=== PATIENT | male | born 1940 | race Caucasian/White ===

== ENCOUNTER 2017-04-19 14:28 | Inpatient (IN) ==
[2017-04-19] MEDS ORDERED: NITROGLYCERIN 1 GM OINT.TOP TD ONE (14:44)
[2017-04-19] MEDS ORDERED: IPRATROPIUM/ALBUTEROL 3 ML AMPUL.NEB NEB ONE ×2 (14:46→14:48)
--- NOTE | 2017-04-19 14:49 | Emergency Department Note ---
SOB HPI - General Chief Complaint: Shortness of Breath/Dyspnea Stated Complaint: SOB Time Seen by Provider: 04/19/17 14:46 Source: patient Mode of arrival: wheelchair Limitations: no limitations - History of Present Illness shortness of breath for the last several days, gradually worsening. Denies fevers denies chills, he does have a cough, productive of clear phlegm. History of CHF and he also is on Lasix 80 mg a day. Denies any recent weight gain, continues to smoke about 6 cigarettes a day. No recent fevers chills, denies ankle swelling denies abdominal pain, denies chest pain but has had some chest tightness. His O2 sats were 75% when he arrived MD Complaint: shortness of breath, cough Onset (ago): day(s) Context: smoke/fume exposure Severity: moderate Consistency/Duration: constant Improves with: oxygen Worsens with: lying flat Known history of: COPD, congestive heart failure Associated symptoms: Reports: denies other symptoms, wheezing. Denies: sputum production, abdominal pain Treatment prior to arrival: none - Related Data Home oxygen amount: 3 liters Home Medications Medication Instructions Recorded Confirmed levalbuterol 1.25 mg/3 mL solution 1.25 mg INHALATION Q1-4H PRN 05/23/15 for nebulization furosemide 40 mg tablet 40 mg PO .2xw tab 01/20/17 04/07/17 Previous Rx's Medication Instructions Recorded leuprolide 22.5 mg (3 month) 22.5 mg IM ONCE #7 ml 05/29/15 intramuscular syringe kit apixaban 5 mg tablet 5 mg PO BID 90 Days #180 tab 08/05/16 atorvastatin 10 mg tablet 10 mg PO QDAY #90 tab 08/06/16 levalbuterol HFA 45 mcg/actuation 2 puff INHALATION Q6H PRN #45 g 08/07/16 aerosol inhaler Oxygen 2 L #1 ea 11/28/16 bisoprolol fumarate 10 mg tablet 5 mg PO QDAY #10 tab 01/14/17 furosemide 40 mg tablet 80 mg PO QDAY #90 tab 01/20/17 fluticasone 100 mcg-umeclid 62.5 1 inh INHALATION QDAY #60 each 01/24/17 mcg-vilant 25 mcg powd for inhalation digoxin 125 mcg tablet 125 mcg PO QDAY #5 tab 02/17/17 diltiazem CD 120 mg 120 mg PO QDAY #5 cap 02/17/17 capsule,extended release 24 hr losartan 25 mg tablet 25 mg PO QDAY #10 tab 03/28/17 Allergies Allergy/AdvReac Type Severity Reaction Status Date / Time Penicillins Allergy Unknown Short of Verified 04/07/17 10:30 breath, mouth swelling Review of Systems All systems ED: reviewed and negative except as stated. Constitutional: Denies: fever, chills ENT ED: Denies: ear pain, throat pain Cardiovascular: Reports: palpitations, dyspnea on exertion, orthopnea. Denies: chest pain, syncope Respiratory: Reports: shortness of breath, cough, wheezes Gastrointestinal: Denies: abdominal pain, nausea, vomiting Genitourinary: Reports: frequency. Denies: dysuria Musculoskeletal: Denies: back pain Integumentary: Denies: rash Endocrine: Reports: fatigue Past Medical History - Past Medical History Source: nursing notes reviewed Medical history: Reports: atrial fibrillation, CHF, COPD, coronary artery disease, hypertension, other Surgical history ED: Reports: angioplasty/stent, vascular surgery, other Family history: Reports: hypertension - Social History smoking status: Current every day smoker Alcohol use: Reports: Occasionally Drug use: Reports: none Physical Exam Limitations: no limitations General appearance: alert, in distress Head: atraumatic, normocephalic Eye: Present: normal appearance, PERRL, EOMI ENT: normal exam, normal oropharynx, mucous membranes moist Neck: Present: normal inspection, full ROM, trachea midline. Absent: tenderness Chest: Present: normal inspection, symmetric chest wall rise. Absent: tenderness Respiratory: Present: respiratory distress, wheezes, accessory muscle use, prolonged expiratory phase Cardiovascular: Present: irregular rhythm, systolic murmur. Absent: JVD Abdominal: Present: soft, normal bowel sounds, hernia, other (midline hernia which is soft). Absent: distention, tenderness, guarding, rebound Extremities: Present: normal inspection, full ROM. Absent: tenderness, pedal edema, joint swelling, calf tenderness Back: Present: normal inspection, full ROM. Absent: CVA tenderness (R), CVA tenderness (L), vertebral tenderness Neurological: Present: alert, oriented X3, CN II-XII intact Psychiatric: Present: normal affect, normal mood Skin: Present: warm, dry, intact, cyanosis Course - Reevaluation(s) Reevaluation #1: Patient was giving breathing treatments, we also start Solu-Medrol, he was started on nitroglycerin as well as enalapril for hypertension and within one hour he was breathing much easier, feeling like he could go home. On auscultation he does have significant wheezing, his heart rate is still in the 120s, atrial fibrillation and he is on [place] for that up. His troponin was negative. CBC within normal limits, blood gas showing significant CO2 retention. We tried BiPAP and he would not tolerate that. Continue with respiratory treatments and we lowered his O2, this point he needs to be admitted for #1 COPD exacerbation #2 CHF #3 atrial fibrillation with rapid ventricular response. Vital Signs Temperature 99.6 F H 04/19/17 14:29 Pulse Rate 76 04/19/17 14:29 Respiratory Rate 33 H 04/19/17 14:29 Blood Pressure 195/125 04/19/17 14:29 Pulse Oximetry (%) 85 L 04/19/17 14:29 Temperature 99.6 F H 04/19/17 14:29 Pulse Rate 38 L 04/19/17 15:25 Respiratory Rate 31 H 04/19/17 15:25 Blood Pressure 141/100 04/19/17 15:21 Pulse Oximetry (%) 96 04/19/17 15:25 Shortness of Breath/Dyspnea - [facility] Narrative Medical decision making narrative: hhospital admission discussed with Dr. Barba. Does have CHF and COPD exacerbation. - Lab Data Result diagrams: 04/19/17 14:58 04/19/17 14:58 Lab Results 04/19/17 04/19/17 04/19/17 Range/Units 14:58 14:58 14:58 WBC 9.7 (4.5-11.0) K/mcL RBC 5.22 (4.50-5.90) M/mcL Hgb 16.3 (13.5-16.5) g/dL Hct 49.3 (41.0-55.0) % MCV 94.3 (80.0-100.0) fL MCH 31.2 (26.0-34.0) pg MCHC 33.1 (31.0-36.0) g/dL RDW 14.0 (11.5-14.5) % Plt Count 139 L (140-440) K/mcL MPV 9.9 (7.4-10.4) fL Gran % 82.6 H (38.0-78.0) % Lymph % (Auto) 10.8 L (15.5-49.0) % Garrett % (Auto) 6.2 (1.0-12.0) % Eos % (Auto) 0.2 (0.0-7.0) % Baso % (Auto) 0.2 (0.0-2.0) % Gran # 8.0 (1.8-8.0) K/mcL Lymph # (Auto) 1.0 L (1.5-4.8) K/mcL Garrett # (Auto) 0.6 (0.1-0.9) K/mcL Eos # (Auto) 0 (0.0-0.7) K/mcL Baso # (Auto) 0 (0.0-0.3) K/mcL VBG Lactic Acid 1.7 (0.5-2.2) mmol/L Sodium 134 (133-145) mmol/L Potassium 4.3 (3.3-5.1) mmol/L Chloride 90 L (96-108) mmol/L Carbon Dioxide 30 (22-30) mmol/L Anion Gap 14.0 (8-16) BUN 23 (8-23) mg/dl Creatinine 0.9 (0.7-1.2) mg/dl GFR Calculation 82 Glucose 135 H (70-105) mg/dL Calcium 9.5 (8.6-10.4) mg/dl Total Bilirubin 0.9 (0.0-1.0) mg/dL AST 22 (0-37) U/l ALT 14 (0-40) U/l Alkaline Phosphatase 91 (39-117) U/L Troponin T (0-0.03) ng/ml NT-Pro-B Natriuret Pep 1877.0 H (0-450) pg/ml Total Protein 8.0 (5.9-8.4) gm/dL Albumin 4.5 (3.2-5.2) gm/dL Globulin 3.5 (2.2-3.7) gm/dL Albumin/Globulin Ratio 1.3 (1.0-2.3) 04/19/17 Range/Units 14:58 WBC (4.5-11.0) K/mcL RBC (4.50-5.90) M/mcL Hgb (13.5-16.5) g/dL Hct (41.0-55.0) % MCV (80.0-100.0) fL MCH (26.0-34.0) pg MCHC (31.0-36.0) g/dL RDW (11.5-14.5) % Plt Count (140-440) K/mcL MPV (7.4-10.4) fL Gran % (38.0-78.0) % Lymph % (Auto) (15.5-49.0) % Garrett % (Auto) (1.0-12.0) % Eos % (Auto) (0.0-7.0) % Baso % (Auto) (0.0-2.0) % Gran # (1.8-8.0) K/mcL Lymph # (Auto) (1.5-4.8) K/mcL Garrett # (Auto) (0.1-0.9) K/mcL Eos # (Auto) (0.0-0.7) K/mcL Baso # (Auto) (0.0-0.3) K/mcL VBG Lactic Acid (0.5-2.2) mmol/L Sodium (133-145) mmol/L Potassium (3.3-5.1) mmol/L Chloride (96-108) mmol/L Carbon Dioxide (22-30) mmol/L Anion Gap (8-16) BUN (8-23) mg/dl Creatinine (0.7-1.2) mg/dl GFR Calculation Glucose (70-105) mg/dL Calcium (8.6-10.4) mg/dl Total Bilirubin (0.0-1.0) mg/dL AST (0-37) U/l ALT (0-40) U/l Alkaline Phosphatase (39-117) U/L Troponin T < 0.01 (0-0.03) ng/ml NT-Pro-B Natriuret Pep (0-450) pg/ml Total Protein (5.9-8.4) gm/dL Albumin (3.2-5.2) gm/dL Globulin (2.2-3.7) gm/dL Albumin/Globulin Ratio (1.0-2.3) Disposition Pt seen by MERCHANDISING SPECIALIST/PA only: No Clinical Impression: COPD exacerbation Disposition: Xfer As Inpt ([facility]) Referrals: Anup Kent MD [Primary Care Provider] -
[2017-04-19] MEDS ORDERED: methylPREDNISolone SOD SUCC 125 MG/2 ML VIAL IV ONE (14:52)
[2017-04-19] MEDS ORDERED: LACTATED RINGERS 1,000 ML IV ONE (14:52)
[2017-04-19] MEDS ORDERED: ENALAPRILAT 1.25 MG/ML VIAL IV ONE (14:55)
[2017-04-19 15:35] LABS: Basophils # (Auto) 0 K/mcL (0.0-0.3); Basophils % (Auto) 0.2 % (0.0-2.0); Eosinophils # (Auto) 0 K/mcL (0.0-0.7); Eosinophils % (Auto) 0.2 % (0.0-7.0); Granulocytes % (Auto) 82.6 % (38.0-78.0); Lymphocytes % (Auto) 10.8 % (15.5-49.0); Mean Cell Volume 94.3 fL (80.0-100.0); Mean Corpuscular HGB Conc 33.1 g/dL (31.0-36.0); Mean Corpuscular Hemoglobin 31.2 pg (26.0-34.0); Monocytes # (Auto) 0.6 K/mcL (0.1-0.9); Monocytes % (Auto) 6.2 % (1.0-12.0); Platelet Count 139 K/mcL (140-440); RBC 5.22 M/mcL (4.50-5.90)
[2017-04-19] MEDS ORDERED: DILTIAZEM 25 MG/5 ML VIAL IV ONE (15:36)
[2017-04-19 15:48] LABS: ALT/SGPT 14 U/l (0-40); Albumin 4.5 gm/dL (3.2-5.2); Albumin/Globulin Ratio 1.3 (1.0-2.3); Alkaline Phosphatase 91 U/L (39-117); Blood Urea Nitrogen 23 mg/dl (8-23)
[2017-04-19] MEDS ORDERED: NICOTINE 14 MG PATCH ONE (17:16)
[2017-04-19] MEDS: NICOTINE 14 MG PATCH TOPICAL ONE ×2 (17:23)
[2017-04-19] MEDS ORDERED: OFLOXACIN OD SCH (18:15)
--- NOTE | 2017-04-19 18:54 | History and Physical Report ---
DATE OF ADMISSION: 04/19/2017 PRIMARY CARE PHYSICIAN: Uriah Kent MD DATE OF ADMISSION: 04/19/2017. REASON FOR ADMISSION: Shortness of breath. HISTORY OF CHIEF COMPLAINT: Mr. Pate is a 77-year-old with known history of O2 dependent COPD, history of prior atrial fibrillation on anticoagulation who has been an active smoker carrying over a 60 pack history. He is actually cutting down and is down to 6 cigarettes a day. He has been following up with Dr. Judd, plant manager. Over the last couple of days the patient has had increasing cough along with shortness of breath. Symptoms associated with voluminous expectoration which is more purulent in nature. Symptoms have progressed to the point the patient is barely able to function and perform activities of daily living. By this morning, he was almost gasping for air and subsequently came to [facility] Emergency Room. Initial workup was significant for hypercapnic respiratory acidosis with COPD exacerbation. The patient received first dose of steroids along with bronchodilators and was started on BiPAP. However, the patient became extremely claustrophobic and subsequently BiPAP was discontinued. The patient also was in atrial fibrillation with RVR with rate around 130 to 140s and received IV diltiazem. Hospitalist service was consulted. At the time of evaluation, the patient is accompanied with his , Monica. The patient is in remarkable distress with shortness of breath, unable to talk in full sentences. Most of the history was obtained from patient's and partly from patient. He although was able to provide answers to review of systems. He denies chest pain, fever or productive sputum. He denies sick contacts. Denies changes in medications. He is actively smoking 6 cigarettes a day. He is unable to walk more than 20 feet at a time due to extreme fatigue, and shortness of breath. He denies weight loss but endorses to loss of appetite and has not eaten for the last 36 hours. Although feels slightly better after initial breathing treatment and steroids. Other than that, patient denied diarrhea, abdominal pain, headache, photophobia, joint pain or rash. REVIEW OF SYSTEMS: Ten-point review of system was performed and negative except the ones discussed above. PAST MEDICAL HISTORY: 1. Atrial fibrillation. 2. Anticoagulation for CVA prophylaxis, on Coumadin. 3. COPD. 4. History of congestive heart failure. 5. Hypertension. ALLERGIES: PENICILLIN. CURRENT MEDICATIONS: Losartan 25. Diltiazem 120. Digoxin 125. Furosemide 40. Bisoprolol 10. Oxygen at 2 liters. Levalbuterol inhaled every 6. Atorvastatin 10. Apixaban 5 twice daily. Leuprolide 22.5 monthly. Furosemide 40. PAST SURGICAL HISTORY: 1. History of prostate cancer surgery. 2. Aortic aneurysm repair. 3. Colonoscopy. FAMILY HISTORY: None significant. SOCIAL HISTORY: 1. He is to his , Monica, who can be reached at [phone]. 2. No alcoholism. 3. He smokes currently 6 cigarettes a day and carrying over [id number] history. PHYSICAL EXAMINATION: GENERAL: The patient is in remarkable distress. VITAL SIGNS: Blood pressure 127/58, respiration rate 35, temperature 99.6, pulse 141, sats 92 percent on 3 liters oxygen. The patient unable to tolerate BiPAP. HEENT: Pupils symmetric. Oral cavity is dry. No ear or nose discharge. Head is normocephalic and atraumatic. NECK: No lymphadenopathy. HEART: S1, S2, irregular rhythm. ESM grade 1. Diminished breath sounds at bases. CHEST: Tight chest with intercostal retraction and prolonged expiratory phase with rhonchi. ABDOMEN: Soft and nontender. LOWER EXTREMITIES: No cyanosis or clubbing. No joint swelling, mild stasis changes. SKIN: No suspicious lesion other than generalized xerosis. PSYCH: Very anxious, distressed, but cooperative and alert. NEURO: Nonfocal, moving all four extremities. LABS AND IMAGING: White count 9.7, hemoglobin 15.3, platelets 139. Lactic acid 1.7. Sodium 134, potassium 4.3, creatinine 0.9, BUN 23. BNP 1877, troponin negative. ABG 7.35/72/79. ASSESSMENT AND PLAN: A 77-year-old admitted with hypercapnic hypoxic respiratory failure. 1. Hypercapnic respiratory failure secondary to acute chronic obstructive pulmonary disease exacerbation. The patient was started on BiPAP. However, he became extremely claustrophobic. Patient refused BiPAP use however, if he continues to deteriorate noninvasive ventilation with only option as the patient is a NO CODE and would not want mechanical ventilation. Initial PAUMA II score 17. 2. Chronic obstructive pulmonary disease exacerbation. By criteria, continue bronchodilators, IV steroids, pulmonary toilet and start empiric antibiotic for upper airway pathogens including streptococcus and atypical organisms. 3. Atrial fibrillation with rapid ventricular response. Continue diltiazem/bisoprolol at home dose and use diltiazem drip if sustained rapid ventricular response. 4. Anticoagulation. Continue apixaban. 5. Other prior medical issues, including history of congestive heart failure, continued digoxin/bisoprolol/furosemide/losartan. 6. Hyperlipidemia. Continue statin. 7. CODE STATUS: DO NOT RESUSCITATE. PLAN FOR TODAY: 1. Admit as inpatient. 2. BiPAP if indicated. 3. Diltiazem drip if sustained rapid ventricular response. 4. Antibiotic coverage. 5. IV steroids, bronchodilators and pulmonary toilet. Overall, a high-complexity admit mandating inpatient hospitalization. Patient PAUMA score 17. AA:jose Job ID: [id number] Doc ID: [id number] Celmente Kent MD [facility]
[2017-04-19] MEDS ORDERED: LEVOFLOXACIN 750 MG/150 ML BAG IV SCH (19:03)
[2017-04-19] MEDS ORDERED: ONDANSETRON 4 MG/2 ML VIAL IV PRN (19:03)
[2017-04-19] MEDS ORDERED: traZODone HCL 50 MG TABLET PO PRN (19:03)
[2017-04-19] MEDS ORDERED: MAGNESIUM SULFATE 2 GM/50 ML BAG IV PRN (19:03)
[2017-04-19] MEDS ORDERED: ACETAMINOPHEN 325 MG TABLET PO PRN (19:03)
[2017-04-19] MEDS ORDERED: POTASSIUM CHLORIDE 20 MEQ PACKET PO PRN (19:03)
[2017-04-19] MEDS ORDERED: ACETAMINOPHEN 1,000 MG/100 ML BOTTLE IV PRN (19:03)
[2017-04-19] MEDS ORDERED: guaiFENesin/CODEINE 10 ML UDC PO PRN (19:03)
[2017-04-19] MEDS ORDERED: 0.9 % SODIUM CHLORIDE 1,000 ML IV SCH (19:03)
[2017-04-19] MEDS ORDERED: DILTIAZEM 125 MG in 0.9 % SODIUM CHLORIDE 100 ML IV SCH (19:03)
[2017-04-19] MEDS: prednisoLONE 1% OPHTH DROPS 1ML BOTTLE OU SCH (19:15)
[2017-04-19] MEDS ORDERED: LEVALBUTEROL 0.63 MG/3 ML AMPUL.NEB NEB PRN (19:17)
[2017-04-19] MEDS ORDERED: LEVALBUTEROL INH PRN (19:30)
[2017-04-19] MEDS: METOPROLOL TARTRATE 5 MG/5 ML VIAL IV SCH ×3 (20:14→21:20)
[2017-04-19] MEDS ORDERED: methylPREDNISolone SOD SUCC 125 MG/2 ML VIAL ONE (20:36)
[2017-04-19] MEDS: methylPREDNISolone SOD SUCC 125 MG/2 ML VIAL IV SCH (20:39)
[2017-04-19] MEDS: IPRATROPIUM/ALBUTEROL 3 ML AMPUL.NEB NEB SCH ×2 (20:57→23:42)
[2017-04-19] MEDS ORDERED: FLUTICASONE HFA 110MCG INHALER INH SCH (21:00)
[2017-04-19] MEDS ORDERED: BUDESONIDE 0.5 MG/2 ML AMPUL.NEB NEB SCH (21:00)
[2017-04-19] MEDS ORDERED: APIXABAN 5 MG TABLET PO SCH (21:00)
[2017-04-19] MEDS ORDERED: DOCUSATE SODIUM 100 MG CAPSULE PO SCH (21:00)
[2017-04-19] MEDS ORDERED: SENNOSIDES/DOCUSATE SODIUM 1 TAB TABLET PO SCH (21:00)
[2017-04-19] MEDS ORDERED: LORazepam 2 MG/ML VIAL IV PRN (21:40)
[2017-04-19 21:43] LABS: Appearance,Urine CLEAR; Bacteria,Urine 0 /hpf (0); Bilirubin,Urine NEG (NEG); Color,Urine YELLOW; Glucose,Urine (UA) NEGATIVE (NEG); Leukocyte Esterase,Urine NEG /uL (NEG); Mucus,Urine MOD /hpf (0); Protein,Urine 30 mg/dL (NEG); Specific Gravity,Urine 1.023 (1.000-1.035); Urine Blood 0.03 mg/dL (<0.03); Urine Budding Yeast FEW /hpf (0); Urine Hyaline Cast 4 /lpf (0-2); Urine RBC 6 /hpf (0-1); Urine Renal Epithelial Cells < 1 /hpf (0-2); Urine Squamous Epithelial Cell 0 /hpf (0-4); Urine WBC 1 /hpf (0-4)
[2017-04-19] MEDS ORDERED: LORazepam 2 MG/ML VIAL ONE (21:46)
[2017-04-19] MEDS ORDERED: 0.9 % SODIUM CHLORIDE 10 ML SYRINGE IV SCH (22:00)
[2017-04-19] MEDS ORDERED: DILTIAZEM 120 MG CAP.XL.24H PO ONE (22:26)
[2017-04-19] MEDS ORDERED: DILTIAZEM 125 MG/25 ML VIAL IV ONE (22:58)
[2017-04-20] MEDS ORDERED: LORazepam 2 MG/ML VIAL ONE ×2 (00:57→03:21)
[2017-04-20] MEDS ORDERED: DIAZEPAM 10 MG/2 ML SYRINGE ONE (03:29)
[2017-04-20] MEDS ORDERED: HYDROmorphone 2 MG/ML VIAL IV PRN ×2 (03:30→03:37)
[2017-04-20] MEDS ORDERED: DIAZEPAM 10 MG/2 ML SYRINGE IV PRN (03:37)
[2017-04-20] MEDS ORDERED: LACTOPEROXI/GLUC OXID/POT THIO 1 EACH GEL..EA. TOPICAL PRN (03:37)
[2017-04-20] MEDS ORDERED: LORazepam 2 MG/ML VIAL IV PRN (03:37)
[2017-04-20] MEDS ORDERED: HYDROmorphone 2 MG/ML VIAL ONE (03:41)
[2017-04-20] MEDS: OFLOXACIN OD SCH ×2 (04:38→04:39)
[2017-04-20] MEDS: IPRATROPIUM/ALBUTEROL 3 ML AMPUL.NEB NEB SCH (04:44)
[2017-04-20] MEDS: methylPREDNISolone SOD SUCC 125 MG/2 ML VIAL IV SCH (04:44)
[2017-04-20] MEDS: prednisoLONE 1% OPHTH DROPS 1ML BOTTLE OU SCH ×2 (04:44→06:54)
[2017-04-20] MEDS ORDERED: 0.9 % SODIUM CHLORIDE 10 ML SYRINGE IV SCH (06:00)
[2017-04-20] MEDS ORDERED: DIGOXIN 125 MCG TABLET PO SCH (09:00)
[2017-04-20] MEDS ORDERED: MULTIVIT,THER IRON,CA,FA & MIN 1 TABLET PO SCH (09:00)
[2017-04-20] MEDS ORDERED: ATORVASTATIN 10 MG PO SCH (09:00)
[2017-04-20] MEDS ORDERED: LOSARTAN 25 MG TABLET PO SCH (09:00)
[2017-04-20] MEDS ORDERED: FUROSEMIDE 40 MG TABLET PO SCH (09:00)
[2017-04-20] MEDS ORDERED: DILTIAZEM 120 MG CAP.XL.24H PO SCH (09:00)
[2017-04-20] MEDS ORDERED: BISOPROLOL FUMARATE 5 MG PO SCH (09:00)
--- NOTE | 2017-04-20 09:02 | XRay Report ---
HISTORY: Reason for Exam:dyspnea FINDINGS: The lungs are mildly hyperinflated. There is interstitial pulmonary fibrosis with the greatest involvement in the right middle lobe. The heart is mildly enlarged. The pulmonary vessels are borderline enlarged. No pleural effusion is present. There has been no significant change since 11/06/16. IMPRESSION: COPD with pulmonary fibrosis Mild cardiomegaly with borderline congestive heart failure Interpreted and Authenticated by: Earl Menard 04/20/17
--- NOTE | 2017-04-20 09:25 | Internal Med Progress Note ---
Medical - PN: Subj Patient information: Note initiated : 04/20/17 at 9:22 am Service Date, if different from initiated Date: [] Patient: Santy Pate 77 y/o M admitted on 04/19/17 for Shortness of breath. Chief Complaint: [] Interval history: patient admitted withsevere hypoxic respiratory failure secondary to underlying O2 dependent COPD. patient is active smoker. dani high risk mortality. ABG 7.23/ . Patient does not want mechanical ventilation and remains a DNR. Continue trial of BiPAP. Serial blood gas, chest imaging IV steroids were quickly dilators and antibiotics. started on diltiazem drip for A. fib with RVR. 04/20- patient continues to bein respiratory distress on noninvasive ventilation. A. fib RVR with rate 160s on diltiazem drip. Clinically deteriorating and high risk . Case discussed with multiple family members and discussed prognosis. patient clearly failing noninvasive ventilation require mechanical ventilation/intubation. risk and benefits were discussed with family. After assessing risk and benefits patient's and family decided to proceed with comfort care measures as mechanical ventilation/ intubation would be a futile effort given advanced COPD. Patient remains critically ill showing extreme agitation and anxiety with worsening shortness of breath on noninvasive ventilation. patient is intermittent . Noninvasive ventilation was discontinued. All serial labs/ ABGs and chest x- ray were discontinued - Constitutional Vitals: Vital Signs Temp Pulse Resp BP Pulse Ox 98 F 58 L 24 H 169/106 94 04/20/17 08:00 04/20/17 08:00 04/20/17 08:00 04/20/17 08:00 04/20/17 08:00 Period Temp Pulse Resp BP Sys/Singh Pulse Ox Last 24 Hr 98 F-99.6 F 38-141 17-44 102-198/58-136 85-100 Intake and Output 04/19/17 04/20/17 04/20/17 20:59 05:59 13:59 Intake Total Output Total Balance Weight Intake & Output: Intake & Output 04/19/17 04/20/17 04/20/17 20:59 05:59 13:59 Intake Total Output Total Balance Weight Intake: IV Sodium Chloride 0.9% 1,000 ml @ 50 mls/hr IV .Q20H [facility] Rx#: [id number] Cardizem 125 mg In Sodium Chloride 0.9% 100 ml @ 5 MG/HR 5 mls/hr IV Q12H [facility] Rx#: [id number] Output: Void Amount General appearance: cooperative, severe distress (hortness of breath) Exam: anxious Labored breathing Tachycardic in A. fib RVR Medical - PN: Obj Da - Labs CBC & Chem 7: 04/19/17 14:58 04/19/17 14:58 Labs: Abnormal Lab Results 04/19/17 04/19/17 04/19/17 20:55 14:58 14:58 Plt Count 139 L Gran % 82.6 H Lymph % (Auto) 10.8 L Lymph # (Auto) 1.0 L Chloride 90 L Glucose 135 H NT-Pro-B Natriuret Pep 1877.0 H Urine Protein 30 A Urine Occult Blood 0.03 A Urine Urobilinogen 4.0 A Urine RBC 6 H Hyaline Casts 4 H Urine Yeast (Budding) Few A Meds: Medications Diazepam (Valium) 5 mg IV Q1-2HP PRN PRN Reason: Sedation Glucose Oxid/Lactoperoxid/Muramidas (Biotene) 1 each TOPICAL PRN PRN PRN Reason: Dry Mouth Hydromorphone HCl (Dilaudid) 0 mg IV Q2HP PRN PRN Reason: Pain Last Admin: 04/20/17 08:16 Dose: 0.5 mg Lorazepam (Ativan) 0 mg IV Q1HP PRN; Protocol PRN Reason: ANXIETY/SEDATION Sodium Chloride (Saline Flush) 10 ml IV Q8 [facility] Last Admin: 04/19/17 22:00 Dose: 10 ml Medical - PN: A/P - Time Spent With Patient Total time spent is greater than 50% in coordination of care (as documented) at patient's floor/unit and/or counseling patient: Greater than 35 minutes (critical care time) - Narrative A/P Narrative: [id number] with hypoxic hypercapnic respiratory failure/A. fib RVR * hypoxic hypercapnic respiratory failure secondary to COPD exacerbation- managed on noninvasive ventilation. ABG . Worsening. Family decided discontinuation of all aggressive measures and transition to palliation * A. fib RVR initially diltiazem drip- discontinue further treatment due to family wishes. * COPD exacerbation on IV steroids bronchodilators Plan * DC noninvasive ventilation * DC serial chest x-rays and ABGs * DC diltiazem drip * Transition to palliation for end of life care Medical - PN: Qual - VTE Deep Vein Thrombosis/Pulmonary Embolism Present on Admission: Yes
[2017-04-20] MEDS ORDERED: NICOTINE 21 MG PATCH TOPICAL SCH (10:00)
--- NOTE | 2017-04-20 17:22 | Death Note ---
Discharge Sum: Prov - Provider Patient information: Note initiated : 04/20/17 at 5:20 pm Service Date, if different from initiated Date: [] Patient: Santy Pate 77 y/o M admitted on 04/19/17 for Shortness of breath. Chief Complaint: [] Primary care physician: Uriah Kent Discharge Sum: Summary - Date and Time Date of admission: 04/19/17 18:55 Date of : 04/20/17 - Summary Details: cause of * Hypoxic hypercapnic respiratory failure Events leading to cause of * advanced COPD brief hospital course Patient was admitted with advanced COPD exacerbation with hypoxic hypercapnic respiratory failure. Patient was unable to tolerate BiPAP and continued to deteriorate. after failing BiPAP and continued respiratory distress Family and patient decided against mechanical ventilation and requested comfort care measures only. Patient was subsequently started on palliation. He succumbed to progressive hypoxic hypercapnic respiratory failure over the next few hours. Family members were present. Condolences were offered - Additional Data Confirmation of as documented by pronouncing clinician: no pulse, no respirations, no heart sounds Family: at bedside Additional persons at bedside: social media marketing specialist Attending/PCP notified?: No Attending physician: Clemente Torrez Was code activated?: No Autopsy requested?: No litigation examiner notified?: No Organ bank notified?: No Advance directives?: No Hospice patient?: No
== END 2017-04-20 15:34 | disposition expired | DRG 190 ==
LOC: ED 14:28 → ICU 18:55
PROVIDERS: ADMIT Internal Medicine; ATTEND Internal Medicine